=== PATIENT | female | born 1995 | race Caucasian/White ===

== ENCOUNTER 2020-08-09 17:45 | Inpatient (IN) | payer BC, MEDICAID, SELFPAY ==
[2020-08-09] VITALS (10 sets, daily range): BP systolic 120–144; BP diastolic 52–80; PULSE 79–102; BMI 56.8
--- NOTE | 2020-08-09 18:31 | LDADM ---
This patient, Sophia Calvert, was admitted to Labor/Delivery/Recovery 108 on 08/09/20 at 17:45. Plans for labor, pain management and were discussed with patient. Patient/family oriented to hospital policies and general routines including ID bracelet, bed and alarms, visiting hours, pain management, procedures, bathroom and other care routines, personal items, smoking policy, room service/diet and guest tray routines, security routines, and visiting hours. Patient/Family are encouraged to report perceived risks to care and to ask questions if they do not understand what they are told or what they should do. See OBIX for further documentation.
[2020-08-09 19:18] LABS: Basophils Percent Auto 0.2 % (0.2-1.2); Eosinophils Percent Auto 0.3 % (0-4.4); Hematocrit 35.6 % (37.0-47.0); Hemoglobin 11.3 g/dL (12.0-15.0); Immature Granulocyte Absolute 0.06 K/mm3 (0.00-0.031); Immature Granulocyte Percent A 0.5 % (0-0.5); Lymphocytes Absolute Auto 4.19 K/mm3 (0.9-3.2); Lymphocytes Percent Auto 34.8 % (18.3-44.2); Mean Corpuscular HGB Conc 31.7 g/dl (32-36); Mean Corpuscular Volume 81.8 fl (80-100); Mean Platelet Volume 10.8 fl (7.4-10.4); Monocytes Absolute Auto 0.5 K/mm3 (0.1-0.6); Monocytes Percent Auto 4.2 % (2.6-8.5); Neutrophils Absolute Auto 7.2 K/mm3 (1.3-6.7); Platelet Count Result 241 k/mm3 (150-375); Red Blood Count 4.35 M/mm3 (4.2-5.4); Red Cell Distribution Width 13.7 % (11.5-14.5)
[2020-08-09 19:30] LABS: Alanine Aminotransferase 14 U/L (4-35); Albumin Level 3.6 g/dL (3.5-5.1); Alkaline Phosphatase 196 U/L (38-126); Anion Gap 6 mmol/L (8-16); Aspartate Amino Transferase 30 U/L (14-36); Bilirubin,Total 0.4 mg/dL (0.2-1.3); Blood Urea Nitrogen 12 mg/dL (7-17); Carbon Dioxide 24 mmol/L (22-30); Chloride 106 mmol/L (98-107); Estimated CRCL calculation 131 ml/min; Estimated Glomerular Filt Rate > 60; Glucose 72 mg/dL (65-105); Potassium 4.5 mmol/L (3.4-5.0); Sodium 136 mmol/L (137-145); Uric Acid 7.7 mg/dL (2.5-7.5)
[2020-08-09] MEDS: DINOPROSTONE 10 MG VAG INSERT VAGINAL (19:43)
[2020-08-10] VITALS (201 sets, daily range): BP systolic 81–158; BP diastolic 40–120; PULSE 25–211; RESP 14; TEMP 36.3–37.4; O2SAT 82–100
[2020-08-10] MEDS: fentaNYL CITRATE INJ (*CRX) 100 MCG/2 ML VIAL 50 MCG IV PUSH ×2 (03:04→04:35)
[2020-08-10 07:50] LABS: Rapid Plasma Reagin Non-Reactive (NonReactive)
[2020-08-10] MEDS: LACTATED RINGERS 1,000 ML 125 ML IV CONT ×3 (08:39→17:20)
[2020-08-10] MEDS: OXYTOCIN 30 UNITS/NS 500 ML 30 UNITS/500 ML BAG IV CONT (08:39)
--- NOTE | 2020-08-10 09:11 | WPDANESEPP ---
Anes - Eval Pre Procedure Procedure: labor epidural Date/Time: 08/10/20 09:11 Surgeon: nitish Preop Diagnosis: pain during labor Pre Op Diagnosis: Induction of Labor Patient Data Age: 25 Gender: F Height: 5 ft 3 in Weight: 145.5 kg Last Vital Signs Temp 36.6 C 08/10/20 08:15 Pulse 83 08/10/20 09:01 BP 138/70 08/10/20 09:01 Allergies Allergy/AdvReac Type Severity Reaction Status Date / Time No Known Allergies Allergy Unverified 10/15/18 13:00 Home Medications Medication Instructions Recorded Confirmed Type PNV cmb#95-ferrous fumarate-FA 1 tablet PO DAILY 08/08/20 08/08/20 History [] valacyclovir [Valtrex] 500 mg PO DAILY 08/08/20 08/09/20 History Laboratory Tests 08/09/20 08/09/20 08/09/20 18:54 18:54 18:54 WBC 12.0 K/mm3 H K/mm3 (4.5-10.0) RBC 4.35 M/mm3 M/mm3 (4.2-5.4) Hgb 11.3 g/dL L g/dL (12.0-15.0) Hct 35.6 % L % (37.0-47.0) MCV 81.8 fl fl (80-100) MCH 26.0 pg pg (26-34) MCHC 31.7 g/dl L g/dl (32-36) RDW 13.7 % % (11.5-14.5) Plt Count 241 k/mm3 k/mm3 (150-375) MPV 10.8 fl H fl (7.4-10.4) Immature Gran % (Auto) 0.5 % % (0-0.5) Neut % (Auto) 60.0 % % (45.5-73.1) Lymph % (Auto) 34.8 % % (18.3-44.2) Bracken % (Auto) 4.2 % % (2.6-8.5) Eos % (Auto) 0.3 % % (0-4.4) Baso % (Auto) 0.2 % % (0.2-1.2) Lymph # (Auto) 4.19 K/mm3 H K/mm3 (0.9-3.2) Bracken # (Auto) 0.5 K/mm3 K/mm3 (0.1-0.6) Eos # (Auto) 0.0 K/mm3 K/mm3 (0-0.3) Baso # (Auto) 0.0 K/mm3 K/mm3 (0.0-0.1) Abs Immat Gran (auto) 0.06 K/mm3 H K/mm3 (0.00-0.031) Absolute Neuts (auto) 7.2 K/mm3 H K/mm3 (1.3-6.7) Absolute Nucleated RBC 0.0 K/mm3 K/mm3 (0.0-0.012) Nucleated RBC % 0.0 % % (0.0-0.2) Sodium Potassium Chloride Carbon Dioxide Anion Gap BUN Creatinine Estim Creat Clear Calc Estimated GFR Glucose Uric Acid Cancelled Calcium Total Bilirubin AST ALT Alkaline Phosphatase Total Protein Albumin RPR Non-reactive (NonReactive) Blood Type Antibody Screen 08/09/20 08/09/20 18:54 18:54 WBC RBC Hgb Hct MCV MCH MCHC RDW Plt Count MPV Immature Gran % (Auto) Neut % (Auto) Lymph % (Auto) Bracken % (Auto) Eos % (Auto) Baso % (Auto) Lymph # (Auto) Bracken # (Auto) Eos # (Auto) Baso # (Auto) Abs Immat Gran (auto) Absolute Neuts (auto) Absolute Nucleated RBC Nucleated RBC % Sodium 136 mmol/L L mmol/L (137-145) Potassium 4.5 mmol/L mmol/L (3.4-5.0) Chloride 106 mmol/L mmol/L (98-107) Carbon Dioxide 24 mmol/L mmol/L (22-30) Anion Gap 6 mmol/L L mmol/L (8-16) BUN 12 mg/dL mg/dL (7-17) Creatinine 0.80 mg/dL mg/dL (0.7-1.0) Estim Creat Clear Calc 131 ml/min ml/min Estimated GFR > 60 (59 - ) Glucose 72 mg/dL mg/dL (65-105) Uric Acid 7.7 mg/dL H mg/dL (2.5-7.5) Calcium 9.0 mg/dL mg/dL (8.4-10.2) Total Bilirubin 0.4 mg/dL mg/dL (0.2-1.3) AST 30 U/L U/L (14-36) ALT 14 U/L U/L (4-35) Alkaline Phosphatase 196 U/L H U/L (38-126) Total Protein 7.0 g/dL g/dL (6.3-8.2) Albumin 3.6 g/dL g/dL (3.5-5.1) RPR Blood Type O Positive Antibody Screen Negative : gestational age (JORDAN 08/18/20) Patient hx anesthesia
--- NOTE | 2020-08-10 12:14 | WPDOBADMIT ---
Obstetrics - Admit Note Admission Note: AROM clear fluid /-2 vertex IUPC and FSE placed. record reviewed. No pertinent additions to the history and/or any subsequent changes in the physical findings that are not consistent with the expected course of the were found. Additions to the history and/or subsequent changes in the physical findings follow. None.
[2020-08-10] MEDS: OXYTOCIN 10 UNITS/ML VIAL IM (18:47)
[2020-08-10] MEDS: miSOPROStol 200 MCG TABLET 600 MCG RECTAL (18:51)
[2020-08-10] MEDS: miSOPROStol 200 MCG TABLET RECTAL (18:51)
--- NOTE | 2020-08-10 19:11 | PM.OBPRVD ---
OB - Delivery Note Procedure Delivery date: 08/10/20 events: Induced HTN Intrapartal events: None Induction method: AROM and per pitocin protocol Delivery monitor: external FHT, external uterine, internal FHT and internal uterine Route of delivery: Laceration Description: None Specimen: No Quantitative Blood Loss (ml): 400 Anesthesia type: Epidural Disposition: floor Baby Date of : 08/10/20 Time of : 18:40 Weeks of gestation at delivery: 38 Infant gender: Female Weight (pounds): 8 Weight (ounces): 0 presentation: vertex position: Left Occiput Anterior Placenta delivery description: Spontaneous cord vessel description: 3 Vessels and Clamped/Cut score one minute: 8 score five minutes: 9
[2020-08-10] MEDS: OXYTOCIN 30 UNITS/NS 500 ML 30 UNITS/500 ML BAG 125 UNITS IV CONT (19:15)
[2020-08-10] MEDS: WITCH HAZEL 40 PADS 1 PAD TOPICAL (21:11)
[2020-08-10] MEDS: BENZOCAINE 20% AER SPR (*SP) 56 GM CAN 1 SPRAY TOPICAL (21:11)
[2020-08-10] MEDS: IBUPROFEN 600 MG TABLET PO (22:41)
[2020-08-11] MEDS: IBUPROFEN 600 MG TABLET PO ×3 (04:16→17:26)
[2020-08-11 04:55] LABS: Hematocrit 29.1 % (37.0-47.0); Hemoglobin 9.6 g/dL (12.0-15.0)
--- NOTE | 2020-08-11 07:24 | WPDANLDPN2 ---
Anes-Prog Note L&D Date/Time: 08/11/20 07:24 Comfortable throughout: labor and delivery Neuraxial method: epidural Epidural/Spinal procedure site: clean & non-tender Neuro status: Neuro function grossly intact. Cardiovascular status: normal Respiratory status: normal Airway patency: baseline Mental status: baseline Post-Op hydration status: normal Vital Signs: Last Vital Signs Temp 37.3 C 08/10/20 21:30 Pulse 92 08/10/20 21:30 Resp 14 08/10/20 21:30 BP 155/81 H 08/10/20 21:30 Pulse Ox 99 08/10/20 21:30 Pain score (VAS): 3 I/O: Intake & Output 08/10/20 08/10/20 08/11/20 15:59 23:59 07:59 Intake Total 1000 1900 Output Total 683 Balance 1000 1217 Post-procedural complaints: none Patient feedback: Patient satisfied with anesthetic care.
[2020-08-11 07:35] VITALS: BP 126/76; PULSE 78; RESP 18; TEMP 36
[2020-08-11] MEDS: valACYclovir HCL 500 MG TABLET PO (10:23)
[2020-08-11] MEDS: POLYSACCHARIDE IRON COMPLEX 150 MG CAPSULE PO ×2 (10:24→17:26)
[2020-08-11] MEDS: MULTIVIT/MIN/PREN/FOL AC/IRON TABLET 1 TAB PO (10:24)
[2020-08-11] MEDS: DOCUSATE SODIUM 100 MG CAPSULE PO ×2 (10:24→17:26)
[2020-08-11 19:10] VITALS: BP 157/90; PULSE 88; RESP 15; TEMP 36.9; O2SAT 99
[2020-08-14 07:50] VITALS: BP 140/77; PULSE 89; RESP 20; TEMP 36.6; O2SAT 100
--- NOTE | 2020-08-22 11:44 | PM.OBDSVD ---
DS: Admitting Diagnosis Admitting Diagnosis Admitting Diagnosis: induction of labor DS: Discharge Diagnosis Discharge Diagnosis (1) (normal spontaneous vaginal delivery): Code(s): O80 - Encounter for full-term uncomplicated delivery Status: Acute OB - DS: Summary OB Procedures : Ultrasound OB Procedures Intrapartum: Spontaneous Vag Delivery OB Procedures: : None Time Spent with Patient Time attestation: Total time spent providing and/or coordinating discharge services: DS: Data Data Completed and Pending Completed studies during hospitalization: Pending at discharge 08/10/20 20:14 Surgical [PTH] Routine Discharge Plan Discharge Attending physician on discharge: Cornell Clark Discharging Clinician: Cornell Clark Patient Disposition: Home, Self-Care Activity: may shower Diet: as tolerated Discharge Instructions: Education: Mom and Baby Guide Given to: Mother Follow-Up: Call your delivering provider's office for an appointment to be seen. Mom and baby should come to the [facility] for the follow-up appointment. Appointment Date/Time: August 14, 2020 at 8:00 am What to expect at your follow-up visit: Physical Assessment Call [phone] if you are unable to keep your appointment time. BREAST CARE: * Wear a snug supportive bra. * For engorgement discomfort: Breast Feeding: * Apply warm moist washcloths * Express milk as needed to relieve engorgement * Wear loose clothing * For sore nipples: * Identify correct latch-on * Apply warm moist washcloths before and after nursing * Air dry nipples after nursing * May apply Lansinoh cream to nipples PERINEAL CARE: * Until bleeding stops, use your thelma bottle after urinating * Change your pad frequently throughout the day * You may take sitz baths several times a day (fill your bathtub with warm water and soak for 20 minutes.) Do NOT bathe in the water * No tub baths until seen by your physician - You may shower ACTIVITY: * Rest as much as possible. * Do not exercise or lift anything heavier than your baby (such as laundry or other children.) * Avoid stairs or driving as much as possible. * Do not put anything into the vagina. No douching, tampons, or sexual activity until seen by physician. NOTIFY PHYSICIAN IF YOU HAVE ANY QUESTIONS OR IF ANY OF THE FOLLOWING SYMPTOMS OCCUR: * If your perineum becomes red, swollen, or more painful than what you have experienced in the hospital. * If your vaginal bleeding becomes foul smelling. * If your vaginal bleeding becomes more heavy than a period or if your bleeding changes from pink to bright red. However, you may pass an occasional walnut-sized clot once or twice for the first week . * If you experience a sharp, shooting pain in you calves. * If you discover a hard, reddened area on your breast or if you experience flu-like symptoms. DIET: * Eat regular, well-balanced meals. * Drink plenty of fluids daily. If , drink to thirst. Patient Instructions: Antibiotic Form Stand Alone Forms: General Discharge Information Follow-up/Referrals: Cornell Clark MD [Physician] - Call for Appointment Discharge Medications: New polysaccharide iron complex 150 mg iron Capsule 150 mg PO BIDWM Qty: 60 RF: 0 Continued valacyclovir [Valtrex] 500 mg Tablet 500 mg PO DAILY RF: 0 PNV cmb#95-ferrous fumarate-FA [] 28 mg iron- 800 mcg Tablet 1 tablet PO DAILY RF: 0 Date of admission: 08/09/20 17:45 Primary Care Provider: PHYSICIAN,TIME RECORDER Admitting Provider: Cornell Clark Attending physician on admission: Cornell Clark Condition: Stable
== END 2020-08-11 21:15 | disposition home or self-care (01) | DRG 806 ==
LOC: ANHLDR 08-10 19:13 → ANHOB2 08-10 21:28
PROVIDERS: Admitting Provider Obstetrics & Gynecology; Visit Provider Obstetrics & Gynecology
DX: O13.4 Gestational [pregnancy-induced] hypertension without significant proteinuria, complicating childbirth (principal); O98.32 Other infections with a predominantly sexual mode of transmission complicating childbirth; Z37.0 Single live birth; Z3A.38 38 weeks gestation of pregnancy; O99.214 Obesity complicating childbirth; E66.01 Morbid (severe) obesity due to excess calories; B00.9 Herpesviral infection, unspecified
CPT/HCPCS: 36415; 80053; 84550; 85014; 85018; 85025; 86592; 86850; 86900; 86901; 88307; A9270; J2590; J2795; J3010; J7120

== ENCOUNTER 2022-01-13 12:56 | Emergency (ER) | payer BC, MEDICAID, SELFPAY ==
[2022-01-13] VITALS (9 sets, daily range): BP systolic 158–168; BP diastolic 80–89; PULSE 54–62; RESP 14–28; TEMP 36.3–36.9; O2SAT 94–100
--- NOTE | ~2022-01-13 | XR_ITS ---
EXAMINATION: XR chest 2V DATE: 01/13/2022 13:24 INDICATION: Epigastric abdominal pain. TECHNIQUE: Frontal and lateral views of the chest were obtained. COMPARISON: None. FINDINGS: The chest demonstrates clear lungs without pneumonia, pleural effusion, or pneumothorax. Th e heart size is normal. IMPRESSION: 1. No acute cardiopulmonary disease. Reviewed, dictated and finalized at location B.
--- NOTE | ~2022-01-13 | US_ITS ---
EXAMINATION: US abdomen limited DATE: 01/13/2022 15:22 INDICATION: Epigastric pain. TECHNIQUE: Multiple grayscale and Doppler ultrasound images of the abdomen were obtained. COMPARISON: None available FINDINGS: Visualized portions of pancreas are normal. Enlarged liver with increased echogenicity. No surface nodularity. Normal hepatopetal flow in the main portal vein. Portal vein measures 12 mm. Chol elithiasis. Gallbladder wall measures 3 mm. The normal common bile duct measures 4.5 mm. There was no sonographic Bowie sign. The visualized portions of the inferior vena cava are normal. IMPRESSION: 1. Cholelithiasis with mild gallbladder wall thickening. Negative sonographic Bowie sign. 2. Hepatomegaly. 3. Echogenic liver, commonly due to steatosis but also can be seen with hepatitis and fibrosis. Reviewed, dictated and finalized at location K. IMPRESSION: 1. Cholelithiasis with mild gallbladder wall thickening. Negative sonographic M urphy sign. 2. Hepatomegaly. 3. Echogenic liver, commonly due to steatosis but also can be seen with hepatit is and fibrosis.
--- NOTE | 2022-01-13 12:58 | ECG_ITS ---
Measurements Intervals [place] Rate: 67 P: 23 VA: 156 QRS: 14 QRSD: 85 T: 23 QT: 392 QTc: 416 Interpretive Statements SINUS RHYTHM WITH SINUS ARRHYTHMIA LOW QRS VOLTAGE IN PRECORDIAL LEADS [QRS DEFLECTION < 1.0 mV IN CHEST LEADS] OTHERWISE WITHIN NORMAL LIMITS NO PREVIOUS ECG AVAILABLE FOR COMPARISON Electronically Signed On 01-13-2022 16:32:24 CDT by Marc Peralta M.D.
[2022-01-13 13:11] LABS: Basophils Percent Auto 0.3 % (0.2-1.2); Eosinophils Percent Auto 0.2 % (0-4.4); Hematocrit 39.1 % (37.0-47.0); Hemoglobin 13.4 g/dL (12.0-15.0); Immature Granulocyte Absolute 0.05 K/mm3 (0.00-0.031); Immature Granulocyte Percent A 0.5 % (0-0.5); Lymphocytes Absolute Auto 2.19 K/mm3 (0.9-3.2); Lymphocytes Percent Auto 20.1 % (18.3-44.2); Mean Corpuscular HGB Conc 34.3 g/dl (32-36); Mean Corpuscular Hemoglobin 28.3 pg (26-34); Mean Corpuscular Volume 82.7 fl (80-100); Mean Platelet Volume 9.9 fl (7.4-10.4); Monocytes Absolute Auto 0.3 K/mm3 (0.1-0.6); Monocytes Percent Auto 2.8 % (2.6-8.5); Neutrophils Absolute Auto 8.3 K/mm3 (1.3-6.7); Neutrophils Percent Auto 76.1 % (45.5-73.1); Platelet Count Result 297 k/mm3 (150-375); Red Blood Count 4.73 M/mm3 (4.2-5.4); Red Cell Distribution Width 13.2 % (11.5-14.5); White Blood Count 10.9 K/mm3 (4.5-10.0)
[2022-01-13 13:21] LABS: Prothrombin Time 13.2 Seconds (11.1-14.7)
[2022-01-13 13:22] LABS: Partial Thromboplastin Time 33.2 SECONDS (22.3-36.8)
[2022-01-13 13:23] LABS: Alanine Aminotransferase 37 U/L (6-35); Alkaline Phosphatase 61 U/L (38-126); Anion Gap 11 mmol/L (8-16); Aspartate Amino Transferase 29 U/L (14-36); Bilirubin,Total 0.5 mg/dL (0.2-1.3); Blood Urea Nitrogen 14 mg/dL (7-17); Calcium 10.4 mg/dL (8.4-10.2); Carbon Dioxide 26 mmol/L (22-30); Chloride 101 mmol/L (98-107); Estimated CRCL calculation 112 ml/min; Estimated Glomerular Filt Rate > 60; Glucose 143 mg/dL (65-110); Lipase 79 U/L (23-300); Sodium 138 mmol/L (137-145)
[2022-01-13 13:34] LABS: Troponin I < 0.012 ng/mL (0.000-0.034)
[2022-01-13] MEDS: BELLADONNA ALK/PHENOB ELIX 10 ML, MAG HYDROX/ALUMINUM HYD/SIMETH 30 ML, LIDOCAINE HCL 2... PO (14:51)
[2022-01-13] MEDS: ONDANSETRON HCL ODT 4 MG TABLET PO (14:53)
--- NOTE | 2022-01-13 15:40 | ED.GENADULT ---
HPI - General Adult General Chief complaint: Chest Pain Stated complaint: chest pains Time Seen by Provider: 01/13/22 14:29 Source: patient Mode of arrival: ambulatory Limitations: no limitations History of Present Illness HPI narrative: This is a 26 year old female who presents for evaluation of epigastric abdominal pain. This pain started last night at 10 pm. She states this pain radiates into her chest. She is unable to described. She states this morning she had nausea and nonbilious emesis. Pain has been constant. She states she vomited the tacos that she ate last night at 6 pm. She denies history of fever, chills, sob or cough. She denies history of gallbladder disease. She rates her pain as 7/10. Onset (ago): hour(s) Related Data Home Medications Medication Instructions Recorded Confirmed vit no.95-ferrous 1 tablet PO DAILY 08/08/20 08/08/20 fumarate 28 mg-folic acid 800 mcg tablet () valacyclovir 500 mg tablet 500 mg PO DAILY 08/08/20 08/09/20 (Valtrex) Allergies Allergy/AdvReac Type Severity Reaction Status Date / Time No Known Allergies Allergy Unverified 10/15/18 13:00 Review of Systems Review of Systems: All systems reviewed & are unremarkable except as noted in HPI and below Constitutional: Constitutional: Denies chills, Denies fatigue and Denies fever(s) Cardiovascular: Cardiovascular: Reports chest pain and Denies rapid heart rate Respiratory: Respiratory: Denies chest congestion and Denies cough Gastrointestinal: Gastrointestinal: Reports abdominal pain, Reports diarrhea, Reports nausea and Reports vomiting Genitourinary: Genitourinary: Denies dysuria Musculoskeletal: Musculoskeletal: Denies back pain and Denies myalgias PMFSH Past Medical History Medical History Morbid obesity with BMI of 50.0-59.9, adult (normal spontaneous vaginal delivery) Family History Family History Other No pertinent family history Social History Social History Smoking status: Never smoker Substance use: never Spiritual care concerns: No Exam Const: General: alert Nutritional Appearance: well nourished and obese Orientation/consciousness: patient oriented x3 Limitations: no limitations HENMT: Head: normal to inspection Mouth: Yes Normal oral and palatal mucosa present, Yes lip normal and Yes moist mucous membranes Throat: posterior oropharynx normal Eyes: Pupils: Equal, round and reactive pupils present EOM: EOMs intact bilaterally Resp: Effort & Inspection: normal respiratory effort Auscultation: clear to auscultation bilaterally and breath sounds present Cardio: Rate: regular rate Rhythm: regular rhythm Heart sounds: no murmurs GI: GI Palp: Yes Soft to palpation and Yes Tenderness to palpation present (GI) (epigastric, RUQ, LUQ) Back/Spine/Pelvis: Back: no CVA tenderness Skin: General skin exam: normal color Rashes: no rashes Neuro: General: patient oriented x3, moves all extremities and CN's II-XI intact bilaterally Extrem: General: normal to inspection Psych: Mental Status: mental status grossly normal Affect: normal affect Attitude: cooperative Course Reevaluation(s) Reevaluation #1: PAtient states she feels much better. She has gallstones but negative crystal's . I Discussed will treat with low fat diet and referral to general surgery. She is agreeable to discharge plan. Date: 01/13/22 Time: 17:37 Vital Signs Vital signs: Vital Signs Temperature 98.5 F 01/13/22 12:57 Pulse Rate 60 01/13/22 12:57 Respiratory Rate 14 01/13/22 12:57 Blood Pressure 159/84 H 01/13/22 12:57 Pulse Oximetry 100 01/13/22 12:57 Oxygen Delivery Room Air 01/13/22 12:57 Temperature 97.3 F L 01/13/22 16:30 Pulse Rate 55 L 01/13/22 16:30 Respiratory
[2022-01-13 16:29] LABS: Troponin I < 0.012 ng/mL (0.000-0.034)
[2022-01-13] MEDS: PANTOPRAZOLE SODIUM IV 40 MG VIAL IV PUSH (17:02)
[2022-01-13] MEDS: SODIUM CHLORIDE 0.9% IV 1,000 ML 999 ML IV CONT (17:03)
[2022-01-13] MEDS: KETOROLAC 30 MG/ML VIAL (*BKC) IV PUSH (17:03)
== END 2022-01-13 17:49 | disposition home or self-care (01) ==
PROVIDERS: Emergency Provider General Practice
DX: K80.20 Calculus of gallbladder without cholecystitis without obstruction (principal)
CPT/HCPCS: 36415; 71046; 76705; 80053; 83690; 84484; 85025; 85610; 85730; 93005; 96361; 96374; 96375; 99284; A9270; C9113; J1885; J7030

== ENCOUNTER 2024-01-14 11:16 | Outpatient (CLI) | payer BC, SELFPAY ==
--- NOTE | ~2024-01-14 | US_ITS ---
Pelvic ultrasound. Clinical History: First trimester , vaginal spotting Technique: Realtime transabdominal and transvaginal scanning of the pelvis was performed. Color flow Doppler and Doppler spectral analysis were performed. Findings: The uterus is anteverted, and contains an intrauterine gestation. [place]-rump length is 7.3 cm corresponds to an estimated gestational age of 13 weeks 3 days. heart rate is [address] nta anteriorly located. Neither ovary seen. No adnexal mass seen. There is no evidence of free fluid in the cul de sac. Impression: Live intrauterine gestation, with estimated gestational age of 13 weeks 3 days. heart rate is 1 47 bpm. Reviewed, dictated and finalized at location . Impression: Live intrauterine gestation, with estimated gestational age of 13 weeks 3 days. heart rate is 147 bpm.
== END 2024-01-14 11:17 ==
LOC: MICIMG 11:17
PROVIDERS: PCP Advanced Practice Midwife; Visit Provider Advanced Practice Midwife
DX: O26.851 Spotting complicating pregnancy, first trimester (principal); O26.30 Retained intrauterine contraceptive device in pregnancy, unspecified trimester; Z3A.13 13 weeks gestation of pregnancy
CPT/HCPCS: 76801

== ENCOUNTER 2024-03-01 13:23 | Outpatient (CLI) | payer BC, MEDICAID, SELFPAY ==
--- NOTE | ~2024-03-01 | US_ITS ---
EXAMINATION: US OB /maternal detail DATE: 03/01/2024 13:58 INDICATION: anatomic survey. TECHNIQUE: Real-time ultrasound of the pelvis was performed. COMPARISON: Ultrasound 01/14/2024 FINDINGS: There is a single living fetus in breech presentation. The placenta is anterior, 3.4 cm from the cer vix. The cervical length is 2.5 cm on transabdominal images, which is normal. heart rate is 147 beats per minute (bpm). The amniotic fluid volume is subjectively normal. The following biometric data were obtained: Biparietal diameter (BPD): 4.8 cm; head circumference (HC): 18.0 cm; abdominal circumference (AC): 16 .0 cm; femur length (FL): 3.2 cm. These measurements are concordant. Estimated weight is 360 g +/- 54 g, which correlates with the 68th percentile when 07/18/24 is used as estimated date of delivery. As single measurements, these parameters are each equal to the following estimated gestational ages: BPD: 20 weeks 4 days. HC: 20 weeks 3 days. AC: 21 weeks 1 days. FL: 19 weeks 6 days. estimated gestational age based solely on measurements from this exam is 20 weeks 4 days +/- 1 weeks 3 days. The cerebral ventricles, cerebellum, cisterna magna, nuchal fold, lip, and visualized portions of the spine are normal. The heart is normal. The diaphragm, stomach, kidneys, and bladder are normal. Ther e are two umbilical arteries to yield a 3-vessel cord. The cord insertion is normal. IMPRESSION: 1. Single living fetus in breech presentation. 2. Estimated weight is 360 g +/- 54 g, which correlates with the 68th percentile when 07/18/24 is used as estimated date of delivery. This date was set by ultrasound on 01/14/2024. 3. Normal anatomic survey. Reviewed, dictated and finalized at location A. IMPRESSION: 1. Single living fetus in breech presentation. 2. Estimated weight is 360 g +/- 54 g, which correlates with the 68th pe rcentile when 07/18/24 is used as estimated date of delivery. This date was set by ultrasound on 01/14/2024. 3. Normal anatomic survey.
== END 2024-03-01 13:24 ==
LOC: MICIMG 13:26
PROVIDERS: PCP Advanced Practice Midwife; Visit Provider Advanced Practice Midwife
DX: Z36.9 Encounter for antenatal screening, unspecified (principal); Z3A.20 20 weeks gestation of pregnancy
CPT/HCPCS: 76805

== ENCOUNTER 2024-05-24 15:19 | Outpatient (CLI) | payer BC, SELFPAY ==
--- NOTE | ~2024-05-24 | US_ITS ---
EXAMINATION: US OB follow up DATE: 05/24/2024 15:40 INDICATION: Preeclampsia. Assess growth. TECHNIQUE: Real-time ultrasound of the pelvis was performed. The interpreting radiologist was not pre sent for the study. COMPARISON: None. FINDINGS: There is a single living fetus in vertex presentation. The placenta is anterior and not low-lying. F etal heart rate is 140 beats per minute (bpm). The amniotic fluid index is 14 point cm, which is nor mal (5th%-95%: 8.6-24.2 cm at 32 weeks estimated gestational age) . The following biometric data were obtained: BPD: 8.4 cm -> 33 weeks 6 days Head circumference: 31.2 cm -> 34 weeks 6 days Abdominal circumference: 29.9 cm -> 33 weeks 6 days Femur length: 6.3 cm -> 32 weeks 4 days These measurements are concordant. Head circumference to abdominal circumference ratio: 1.04 (normal range 0.95-1.11). Estimated weight: 2232 g (+/-) 335 g or 4 lbs. 15 oz. (+/-) 12 oz. IMPRESSION: 1. Single living fetus in vertex presentation with heart rate of 140 bpm. 2. Normal amniotic fluid index of 14.8 cm. 3. Estimated weight is 84th percentile by Hadlock criteria when 07/18/2024 is used as the estim ated date of delivery (JORDAN). Please correlate with clinical information or earlier ultrasounds for mo st accurate JORDAN. Reviewed, dictated and finalized at location A. IMPRESSION: 1. Single living fetus in vertex presentation with heart rate of 140 bpm. 2. Normal amniotic fluid index of 14.8 cm. 3. Estimated weight is 84th percentile by Hadlock criteria when 4 is used as the estimated date of delivery (JORDAN). Please correlate with clinic al information or earlier ultrasounds for most accurate JORDAN.
== END 2024-05-24 15:20 | disposition home or self-care (01) ==
LOC: MICIMG 15:21
PROVIDERS: PCP Advanced Practice Midwife; Visit Provider Advanced Practice Midwife
DX: O14.03 Mild to moderate pre-eclampsia, third trimester (principal); Z3A.00 Weeks of gestation of pregnancy not specified
CPT/HCPCS: 76816

== ENCOUNTER 2024-06-24 09:54 | Outpatient (RCR) | payer BC, SELFPAY ==
[2024-05-30 11:30] VITALS: BP 124/64; PULSE 78
[2024-06-07 13:30] VITALS: BP 114/62; PULSE 115
[2024-06-10 12:16] VITALS: BP 118/60; PULSE 75
[2024-06-17 11:20] VITALS: BP 137/65; PULSE 99
[2024-06-20 13:32] VITALS: BP 122/63; PULSE 102
--- NOTE | ~2024-06-24 | US_ITS ---
LIMITED OBSTETRIC ULTRASOUND/BIOPHYSICAL PROFILE Ordering provider: Lor Schroeder MD History: . nonreactive NST/Preeclampsia . Comparison: None. FINDINGS: MATERNAL CERVIX: Not visualized. PRESENTATION: Vertex. Longitudinal lie. PLACENTAL LOCATION: Anterior No previa. HEART RATE: 146 bpm (normal is between 110 to 160 bpm). AMNIOTIC FLUID INDEX: Largest vertical pocket is 6.1 cm. OTHER: Maternal ovaries not visualized. SCORE: breathing movements: 2 movements: 2 tone: 2 Amniotic fluid volume: 2 Total: 8 IMPRESSION: Normal biophysical profile. Reviewed, dictated and finalized at location A. M BONE PRESS TENDER IMPRESSION: Normal biophysical profile.
--- NOTE | ~2024-06-24 | US_ITS ---
LIMITED OBSTETRIC ULTRASOUND/BIOPHYSICAL PROFILE Ordering provider: Loretta Gonzalez CNM History: . non reactive NST . Comparison: None. FINDINGS: MATERNAL CERVIX: Not visualized. PRESENTATION: Vertex. Longitudinal lie. PLACENTAL LOCATION: Anterior. No previa. HEART RATE: 148 bpm (normal is between 110 to 160 bpm). AMNIOTIC FLUID INDEX: Normal. Largest vertical pocket is 7.3 cm. OTHER: Maternal ovaries not visualized. SCORE: breathing movements: 2 movements: 2 tone: 2 Amniotic fluid volume: 2 Total: 8 IMPRESSION: Normal biophysical profile. Reviewed, dictated and finalized at location A. TRONIC SENSING EQUIPMENT ASSEMBLER IMPRESSION: Normal biophysical profile.
--- NOTE | ~2024-06-24 | US_ITS ---
EXAMINATION: US OB BPP wo non-stress DATE: 06/24/2024 11:48 INDICATION: Inadequate accelerations for nonstress test TECHNIQUE: Real-time pelvic ultrasound was performed. The interpreting radiologist was not present fo r the study. COMPARISON: None. FINDINGS: There is a single living fetus in vertex presentation. The placenta is anterior and not low-lying wi th caudal margin 6.9 cm from the internal cervical os. Cervical length measures approximately 4.4 cm which is normal. heart rate is 152 beats per minute (bpm). Amniotic fluid volume is subjectivel y normal. Biophysical profile performed by the technologist: breathing (30 sec sustained breathing in 30 minutes): 2 out of 2 movement (3 gross body movements in 30 minutes): 2 out of 2 tone (one episode of nhovims-imqfaswah-kzpjaej limb movement): 2 out of 2 Amniotic fluid pocket (2 cm): 2 out of 2 Total score: 8 out of 8 IMPRESSION: 1. Single living fetus in vertex presentation with heart rate of 152 bpm. 2. Biophysical profile 8 out of 8. Reviewed, dictated and finalized at location B. MENT ERECTOR
--- NOTE | ~2024-06-24 | US_ITS ---
EXAMINATION: US OB BPP wo non-stress DATE: 06/10/2024 13:46 GUIDEMAN INDICATION: Nonreactive NST TECHNIQUE: Real-time transabdominal obstetric ultrasound. FINDINGS: Ultrasound dated 06/07/2024 There is a single living fetus in vertex presentation. The placenta is anterior without placenta pre via. cardiac activity and movement is noted with a heart rate of 155 beats per minute. Biophysical profile: breathin of 2 movement: 2 of 2 tone: 2 of 2 Amniotic flud pocket: 2 of 2 Total score: 8 of 8 IMPRESSION: 1. Single living intrauterine in vertex presentation. 2: Total biophysical profile score of 03/10. Reviewed, dictated and finalized at location B. EMAN IMPRESSION: 1. Single living intrauterine in vertex presentation. 2: Total biophysical profile score of 8.
--- NOTE | ~2024-06-24 | US_ITS ---
EXAMINATION: US OB BPP wo non-stress DATE: 06/17/2024 11:06 INDICATION: Nonreactive nonstress test. Third trimester. TECHNIQUE: Real-time pelvic ultrasound was performed. COMPARISON: Ultrasound 06/14/2024 FINDINGS: There is a single living fetus in vertex presentation. The cervical length is 7.1 cm on transabdomina l images, which is likely overestimated, but is normal. The placenta is anterior, 5.5 cm from the cer vix. heart rate is 159 beats per minute (bpm). The deepest vertical pocket is 4.0 cm. Biophysical profile performed by the technologist: breathing (30 sec sustained breathing in 30 minutes): 2 out of 2 movement (3 gross body movements in 30 minutes): 2 out of 2 tone (one episode of tbkcilz-rzihfqpjm-jiarrxi limb movement): 2 out of 2 Amniotic fluid pocket (2 cm): 2 out of 2 Total score: 8 out of 8 IMPRESSION: 1. Single living fetus in vertex presentation. 2. Biophysical profile 8 out of 8. Reviewed, dictated and finalized at location A. ESS ENGINEERING INTERN
--- NOTE | ~2024-06-24 | US_ITS ---
EXAMINATION: US OB limited w BPP DATE: 05/30/2024 12:04 INDICATION: Gestational hypertension. Preeclampsia. Third trimester. TECHNIQUE: Real-time pelvic ultrasound was performed. COMPARISON: Ultrasound 05/24/2024 FINDINGS: There is a single living fetus in vertex presentation. The placenta is anterior. The cervical length is 4.4 cm on transabdominal images, which is normal. heart rate is 135 beats per minute (bpm). The amount of fluid index is 11.8 cm, which is normal. Biophysical profile performed by the technologist: breathing (30 sec sustained breathing in 30 minutes): 2 out of 2 movement (3 gross body movements in 30 minutes): 2 out of 2 tone (one episode of dpxwfto-tjzlijxgh-hveaslv limb movement): 2 out of 2 Amniotic fluid pocket (2 cm): 2 out of 2 Total score: 8 out of 8 IMPRESSION: 1. Single living fetus in vertex presentation. 2. Biophysical profile 8 out of 8. Reviewed, dictated and finalized at location B.
[2024-06-24 11:20] VITALS: BP 129/68; PULSE 91
== END 2024-06-29 17:52 | disposition home or self-care (01) ==
LOC: ANHOBOP 09:54
PROVIDERS: PCP Advanced Practice Midwife; Visit Provider Advanced Practice Midwife
DX: O13.9 Gestational [pregnancy-induced] hypertension without significant proteinuria, unspecified trimester (principal)
CPT/HCPCS: 59025; 76815; 76819

== ENCOUNTER 2024-06-27 06:00 | Inpatient (IN) | payer BC, MEDICAID, SELFPAY ==
[2024-06-27] VITALS (265 sets, daily range): BP systolic 55–130; BP diastolic 18–93; PULSE 67–113; TEMP 36.1–36.6; O2SAT 94–100; BMI 48.8
--- NOTE | 2024-06-27 06:25 | LDADM ---
This patient, Sophia Calvert, was admitted to Labor/Delivery/Recovery 107 on 06/27/24 at 06:00. Plans for labor, pain management and were discussed with patient. Patient/family oriented to hospital policies and general routines including ID bracelet, bed and alarms, visiting hours, pain management, procedures, bathroom and other care routines, personal items, smoking policy, room service/diet and guest tray routines, security routines, and visiting hours. Patient/Family are encouraged to report perceived risks to care and to ask questions if they do not understand what they are told or what they should do. See OBIX for further documentation.
[2024-06-27 06:40] LABS: Basophils Absolute Auto 0.1 K/mm3 (0.0-0.1); Basophils Percent Auto 0.5 % (0.2-1.2); Eosinophils Absolute Auto 0.1 K/mm3 (0-0.3); Eosinophils Percent Auto 1.1 % (0-4.4); Hematocrit 32.7 % (37.0-47.0); Hemoglobin 11.5 g/dL (12.0-15.0); Immature Granulocyte Absolute 0.06 K/mm3 (0.00-0.031); Immature Granulocyte Percent A 0.6 % (0-0.5); Lymphocytes Absolute Auto 2.41 K/mm3 (0.9-3.2); Lymphocytes Percent Auto 22.9 % (18.3-44.2); Mean Corpuscular HGB Conc 35.2 g/dl (32-36); Mean Corpuscular Hemoglobin 30.7 pg (26-34); Mean Corpuscular Volume 87.2 fl (80-100); Monocytes Absolute Auto 0.7 K/mm3 (0.1-0.6); Monocytes Percent Auto 6.7 % (2.6-8.5); Neutrophils Absolute Auto 7.2 K/mm3 (1.3-6.7); Neutrophils Percent Auto 68.2 % (45.5-73.1); Platelet Count Result 236 k/mm3 (150-375); Red Blood Count 3.75 M/mm3 (4.2-5.4); White Blood Count 10.5 K/mm3 (4.5-10.0)
[2024-06-27 06:54] LABS: Alanine Aminotransferase 21 U/L (6-35); Albumin Level 3.7 g/dL (3.5-5.1); Alkaline Phosphatase 131 U/L (38-126); Anion Gap 6 mmol/L (4-12); Aspartate Amino Transferase 29 U/L (14-36); Bilirubin,Total 0.5 mg/dL (0.2-1.3); Blood Urea Nitrogen 14 mg/dL (7-17); Carbon Dioxide 24 mmol/L (22-30); Chloride 104 mmol/L (98-107); Estimated Glomerular Filt Rate > 60; Glucose 86 mg/dL (65-110); Potassium 3.6 mmol/L (3.4-5.0); Sodium 134 mmol/L (137-145)
[2024-06-27] MEDS: LACTATED RINGERS 1,000 ML 125 ML IV CONT ×3 (07:06→18:47)
[2024-06-27] MEDS: OXYTOCIN 30 UNITS/NS 500 ML 30 UNITS/500 ML BAG IV CONT (07:06)
[2024-06-27] MEDS: AMPICILLIN 2 GM/NS 100 ML 2 GM/100 ML BAG IVPB (07:06)
[2024-06-27 07:35] LABS: HIV 1/2 Ab P24 Ag Result Negative (Negative)
[2024-06-27 07:39] LABS: Uric Acid 6.9 mg/dL (2.5-7.5)
[2024-06-27 07:51] LABS: Rapid Plasma Reagin Non-Reactive (NonReactive)
--- NOTE | 2024-06-27 07:56 | WPDOBADMIT ---
Obstetrics - Admit Note Admission Note: record reviewed. No pertinent additions to the history and/or any subsequent changes in the physical findings that are not consistent with the expected course of the were found. Additions to the history and/or subsequent changes in the physical findings follow. None.
--- NOTE | 2024-06-27 07:56 | PM.OBPNLAB ---
Pain Control Date/time seen: 06/27/24 07:48 Comments: IOL for preeclampsia. Denies feeling ctx. Denies POWELL, visual changes, RUQ pain, or edema. Pelvic Exam Dilation (cm): 1 (1.5) Effacement (%): 50 station: -3 Amniotic membrane status: Intact Comments: head well applied to cervix. Contractions Monitor mode: External Contraction pattern: Absent Status Comments: FHTs baseline 140. Moderate variability. +accelerations. Assessment and Plan Assessment: induction ongoing Comments: CNM to bedside. Discussed plan of care and option for amniotomy and IUPC placement. Discussed risks, benefits, and expectations of breaking water. Patient is agreeable. Amniotomy performed and there was a moderate return of clear amniotic fluid.IUPC placed easily through internal OS. Catheter filled with clear amniotic fluid. Patient tolerated procedure well. Plan to titrate pitocin as needed to achieve adequate contraction pattern. No severe features. Labs stable. Anticipate vaginal . Dr. Schroeder updated.
--- NOTE | 2024-06-27 09:51 | P.PNAN_ITS ---
Anes - Eval Pre Procedure Procedure: Labor epidural Date/Time: 06/27/24 09:51 Surgeon: Alexandre Preop Diagnosis: Pain during labor Pre Op Diagnosis: IOL Patient Data Age: 29 Gender: F Height: 1.6 m Weight: 125 kg Last Vital Signs Temp 36.1 C L 06/27/24 07:00 Pulse 92 06/27/24 09:47 BP 107/37 L 06/27/24 09:47 Pulse Ox 99 06/27/24 09:48 O2 Del Method Room Air 06/27/24 06:23 Allergies Allergy/AdvReac Type Severity Reaction Status Date / Time No Known Allergies Allergy Verified 06/20/24 12:23 Home Medications Medication Instructions Recorded Confirmed Type vit no.95-ferrous 1 tablet PO DAILY 08/08/20 06/20/24 History fumarate 28 mg-folic acid 800 mcg tablet () valacyclovir 500 mg tablet 500 mg PO BID 08/08/20 06/20/24 History (Valtrex) polysaccharide iron complex 150 mg 150 mg PO BIDWM #60 caps 08/11/20 06/20/24 Rx iron capsule aspirin 81 mg tablet 81 mg PO DAILY 06/20/24 06/20/24 History cholecalciferol (vitamin D3) 125 125 mcg PO DAILY 06/20/24 06/20/24 History mcg (5,000 unit) tablet (Vitamin D3) Laboratory Tests 06/27/24 06:24 WBC 10.5 H K/mm3 (4.5-10.0) RBC 3.75 L M/mm3 (4.2-5.4) Hgb 11.5 L g/dL (12.0-15.0) Hct 32.7 L % (37.0-47.0) MCV 87.2 fl (80-100) MCH 30.7 pg (26-34) MCHC 35.2 g/dl (32-36) RDW 13.0 % (11.5-14.5) Plt Count 236 k/mm3 (150-375) MPV 10.0 fl (7.4-10.4) Immature Gran % (Auto) 0.6 H % (0-0.5) Neut % (Auto) 68.2 % (45.5-73.1) Lymph % (Auto) 22.9 % (18.3-44.2) [place] % (Auto) 6.7 % (2.6-8.5) Eos % (Auto) 1.1 % (0-4.4) Baso % (Auto) 0.5 % (0.2-1.2) Lymph # (Auto) 2.41 K/mm3 (0.9-3.2) [place] # (Auto) 0.7 H K/mm3 (0.1-0.6) Eos # (Auto) 0.1 K/mm3 (0-0.3) Baso # (Auto) 0.1 K/mm3 (0.0-0.1) Abs Immat Gran (auto) 0.06 H K/mm3 (0.00-0.031) Absolute Neuts (auto) 7.2 H K/mm3 (1.3-6.7) Absolute Nucleated RBC 0.000 K/mm3 (0.0-0.012) Nucleated RBC % 0.0 % (0.0-0.2) Sodium 134 L mmol/L (137-145) Potassium 3.6 mmol/L (3.4-5.0) Chloride 104 mmol/L (98-107) Carbon Dioxide 24 mmol/L (22-30) Anion Gap 6 mmol/L (4-12) BUN 14 mg/dL (7-17) Creatinine 0.90 mg/dL (0.7-1.0) Estim Creat Clear Calc Not Reportable Estimated GFR > 60 (59 - ) Glucose 86 mg/dL (65-110) Uric Acid 6.9 mg/dL (2.5-7.5) Calcium 9.0 mg/dL (8.4-10.2) Total Bilirubin 0.5 mg/dL (0.2-1.3) AST 29 U/L (14-36) ALT 21 U/L (6-35) Alkaline Phosphatase 131 H U/L (38-126) Total Protein 7.0 g/dL (6.3-8.2) Albumin 3.7 g/dL (3.5-5.1) RPR Non-reactive (NonReactive) HIV 1&2 Ab/P24 Ag 4thGn Negative (Negative) Blood Type O Positive Antibody Screen Negative Patient hx anesthesia problems: none Family hx anesthesia problems: none Results Review: All pre-operative results and documents have been reviewed as part of the pre- operative evaluation. [facility] Past Medical History Medical History Morbid obesity with BMI of 50.0-59.9, adult (normal spontaneous vaginal delivery) Family History Family History Mother Carcinoma Other No pertinent family history Social History Social History Smoking status: Never smoker Substance use: never Do You Feel Safe in your Home?: Yes Lack of Transportation: No Lack of Food: Never True Current Housing: I Have Housing Concerned About Future Housing: No Difficulty Paying Gas/Electric Bills: No Difficulty Paying for Meds: No Currently Unemployed: No Education: High School Diploma/GED Difficulty w/ Childcare or Family Care: No Spiritual care concerns: No Exam Day of Procedure 06/27/24 09:51 Patient weight: morbidly obese Heart: regular rate and rhythm Lungs: clear to auscultation Airway: Mallampati scale class II Neurological: alert and oriented
[2024-06-27] MEDS: AMPICILLIN 1 GM/NS 50 ML 1 GM/50 ML BAG IVPB ×4 (10:59→23:38)
[2024-06-27] MEDS: SODIUM CHLORIDE 0.9% IV 300 ML 600 ML I-UTERINE (14:49)
--- NOTE | 2024-06-27 18:01 | PM.OBPNLAB ---
Pain Control Date/time seen: 06/27/24 9069 Comments: Phone call from RN. Assessment and Plan Comments: RN calling. Pt FHTs with recurrent deep variable decelerations. Plan to stop pitocin. Start amnioinfusion. Restart Pitocin in one hour if decels resolve.
--- NOTE | 2024-06-27 18:04 | PM.OBPNLAB ---
Pain Control Date/time seen: 06/27/24 1784 Pain control: tolerating well and epidural Pelvic Exam Dilation (cm): 3 (3.5) Effacement (%): 50 station: -3 Amniotic membrane status: Ruptured Contractions Monitor mode: Internal Contraction pattern: Absent Status Comments: Baseline 145, moderate variability Assessment and Plan Assessment: induction ongoing Plan: continuous present management Comments: CNM at bedside. station unchanged. Assisted pt into Walcher's position x 4 minutes, then to side lying release on left and right side. Finally, assisted to right lateral side with peanut ball between ankles. Plan to increase pitocin as needed to achieve adequate contraction pattern.
[2024-06-27] MEDS: ACETAMINOPHEN 500 MG TABLET 1000 MG PO (21:05)
[2024-06-27] MEDS: ONDANSETRON INJ 4 MG/2 ML VIAL IV PUSH (23:18)
[2024-06-27] MEDS: PHENYLEPHRINE 1,000 MCG/10 ML SYRINGE 100 MCG IV PUSH ×2 (23:25→23:33)
--- NOTE | 2024-06-27 23:48 | PM.OBPNLAB ---
Pain Control Date/time seen: 06/27/24 2345 CNM at bedside. Pain control: tolerating well and epidural Contractions Monitor mode: Internal Contraction frequency: 5 (5-8) Contraction duration: 80 (70-80) Contraction pattern: Regular Status Comments: FHTs 135 with moderate variability. Recent resolution of variable decelerations. Assessment and Plan Assessment: induction ongoing Comments: Pitocin off at this time. Plan to restart pitocin after 30 minutes of no FHT decelerations. Plan to begin pushing when fully dilated and ctx pattern improves. Anticipate vaginal .
--- NOTE | 2024-06-27 23:55 | PM.OBPRVD ---
OB - Vaginal Delivery Note Procedure Delivery date: 06/28/24 Events: Positive Group B Strep (GBS) and Preeclampsia w/o severe features Induction method: Per Pitocin Protocol Delivery augmentation: Rupture of Membranes Delivery monitor: External FHT and Internal Uterine Route of delivery: Episiotomy description: None Laceration Description: None Specimen: Yes (placenta) Quantitative Blood Loss (ml): 250 Anesthesia type: Epidural Disposition: Floor Complications: Other complications (retained placental fragment) Narrative: Sophia arrived for IOL d/t preeclampsia. Pitocin was started and membranes were ruptured. Ampicillin given per protocol for +GBS. She received an epidural for analgesia. She progressed to complete dilation and pushed with contractions. Dr. Schroeder Was called due to recurrent variable decelerations. Sophia pushed very well with contractions. After further descent of the head, Dr. Petty was called to the room from the assisted with head rotation after which there was immediate change in station. With the next push, she brought the head to complete crown and delivered over an intact perineum. A tight nuchal cord was observed. There was easy delivery of both anterior posterior shoulders followed by the remainder of the infant. The infant was made placed on maternal abdomen and dried and stimulated by the nursery staff. After 1 minutes of life, the cord was doubly clamped and cut. Cord gases, cord blood, and cord segment were obtained. The placenta delivered spontaneously in [place] presentation. The vulva perineum and vaginal vault were inspected and found to be intact. There was excellent hemostasis at this point. All delivery counts were correct. While CNM remained in the delivery room, a gush of blood was noted as well as some uterine atony. A bimanual uterine exam was performed and a ping-pong ball sized piece of placental fragment was returned with approximately 100 mL of additional blood. After this time, there was excellent uterine tone and hemostasis. Baby Date of : 06/28/24 Time of : 02:21 Gestational Age by Date: 37 Infant gender: Male Weight (pounds): 8 Weight (ounces): 0 presentation: vertex position: Right Occiput Anterior Placenta delivery description: Spontaneous Cord Vessel Description: 3 Vessels, Nuchal Cord and Tight score one minute: 8 score five minutes: 9
--- NOTE | 2024-06-27 23:58 | PM.OBDSVD ---
DS: Admitting Diagnosis Discharge Date 06/30/24 Admitting Diagnosis 29 y.o. at 37 weeks undergoing IOL for preeclampsia. DS: Discharge Diagnosis Discharge Diagnosis (1) (normal spontaneous vaginal delivery): Code(s): O80 - Encounter for full-term uncomplicated delivery Status: Acute (2) Preeclampsia: Code(s): O14.90 - Unspecified pre-eclampsia, unspecified trimester Status: Acute OB - DS: Summary Hospital Course Hospital Course: Uncomplicated OB Procedures : NST and Ultrasound OB Procedures Intrapartum: Spontaneous Vag Delivery and GBS prophylaxis OB Procedures: : None Peripartum Data Delivery Method: Natural Vaginal Laceration Description: None Episiotomy description: None complications: none Status at Discharge Functional status at discharge: independent ambulation Overall status at discharge: patient is progressing back to baseline Time Spent with Patient Time attestation: Total time spent providing and/or coordinating discharge services: Exam Narrative: Alert and oriented. Mood is pleasant and cooperative. Perineum with minimal edema. Fundus firm and below umbilicus. Const: General: cooperative, healthy appearing, no acute distress and alert Orientation/consciousness: patient oriented x3 Limitations: no limitations Resp: Effort & Inspection: normal respiratory effort and able to speak in complete sentences Cardio: Rate: regular rate GI: Inspection: normal to inspection GI Palp: Yes Soft to palpation : General: Yes bladder normal to palpation External Female Exam: other (lochia WNL) Bimanual exam- vagina & uterus: bladder normal to palpation Other: Fundus firm and below U Skin: General skin exam: normal color and no rashes or lesions noted Neuro: General: patient oriented x3 and moves all extremities Cognition (Neuro): normal cognition Speech: normal speech Sensory Exam: normal sensation Extrem: General: normal to inspection and no calf tenderness Psych: Appearance: grossly normal Mental Status: mental status grossly normal Affect: normal affect Thought process: Normal thought process present DS: Data Data Completed and Pending Labs on day of discharge: Labs from last 24 hours 06/27/24 06:24 WBC 10.5 H RBC 3.75 L Hgb 11.5 L Hct 32.7 L MCV 87.2 MCH 30.7 MCHC 35.2 RDW 13.0 Plt Count 236 MPV 10.0 Immature Gran % (Auto) 0.6 H Neut % (Auto) 68.2 Lymph % (Auto) 22.9 [place] % (Auto) 6.7 Eos % (Auto) 1.1 Baso % (Auto) 0.5 Lymph # (Auto) 2.41 [place] # (Auto) 0.7 H Eos # (Auto) 0.1 Baso # (Auto) 0.1 Abs Immat Gran (auto) 0.06 H Absolute Neuts (auto) 7.2 H Absolute Nucleated RBC 0.000 Nucleated RBC % 0.0 Sodium 134 L Potassium 3.6 Chloride 104 Carbon Dioxide 24 Anion Gap 6 BUN 14 Creatinine 0.90 Estim Creat Clear Calc Not Reportable Estimated GFR > 60 Glucose 86 Uric Acid 6.9 Calcium 9.0 Total Bilirubin 0.5 AST 29 ALT 21 Alkaline Phosphatase 131 H Total Protein 7.0 Albumin 3.7 RPR Non-reactive HIV 1&2 Ab/P24 Ag 4thGn Negative Blood Type O Positive Antibody Screen Negative Discharge Plan Discharge Attending physician on discharge: Lor Schroeder Discharging Clinician: Loretta Gonzalez Patient Disposition: Home, Self-Care Activity: may shower and pelvic rest Diet: as tolerated and regular Discharge Instructions: Continue taking your vitamin and any other supplements as previously directed (Examples: Iron, Vitamin D). You may take Tylenol 1000mg over the counter every 6 hours as needed for pain. Do not exceed 4000mg of Tylenol daily. You may continue using tucks pads and dermoplast spray if needed for a few more days. Blood Pressure Instructions Check your BP at home daily. Keep a log and bring to your next visit. Report any BP readings over 160/110 to provider immediately. (Please call if either number is elevated) Headache that does not improve with 2 Extra Strength Tylenol (you may take Ibuprofen if not ) Visual changes such as blurred vision or flashes of light Pain under the right breast Significant increase in swelling with any of the above symptoms * Make sure you are sitting for at least 5 minutes before checking your blood pressure. Keep legs uncrossed and avoid talking while taking your blood pressure. Patient Instructions: Antibiotic Form Stand Alone Forms: General Discharge Information Follow-up/Referrals: Loretta Gonzalez, CNM [Primary Care Provider] - (6 weeks ) Discharge Medications: New ibuprofen 600 mg tablet 600 mg PO Q6H PRN (Reason: pain) Qty: 30 0RF Continued PNV cmb#95-ferrous fumarate-FA [] 28 mg iron- 800 mcg Tablet 1 tablet PO DAILY polysaccharide iron complex 150 mg iron Capsule 150 mg PO BIDWM Qty: 60 0RF cholecalciferol (vitamin D3) [Vitamin D3] 125 mcg (5,000 unit) Tablet 125 mcg PO DAILY Discontinued valacyclovir [Valtrex] 500 mg Tablet 500 mg PO BID aspirin 81 mg Tablet 81 mg PO DAILY Date of admission: 06/27/24 06:00 Primary Care Provider: Loretta Gonzalez Admitting Provider: Lor Schroeder Attending physician on admission: Lor Schroeder Condition: Stable
[2024-06-28] VITALS (35 sets, daily range): BP systolic 109–131; BP diastolic 46–73; PULSE 61–150; RESP 14–18; TEMP 36.3–38; O2SAT 90–100
[2024-06-28] MEDS: miSOPROStol 200 MCG TABLET 800 MCG (02:40)
[2024-06-28] MEDS: OXYTOCIN 30 UNITS/NS 500 ML 30 UNITS/500 ML BAG 125 UNITS IV CONT (02:52)
[2024-06-28] MEDS: ceFAZolin 3 GM/D5W 100 ML 100 ML IVPB (03:11)
[2024-06-28] MEDS: ACETAMINOPHEN 500 MG TABLET 1000 MG (04:16)
[2024-06-28] MEDS: IBUPROFEN 600 MG TABLET (04:18)
--- NOTE | 2024-06-28 05:06 | PC.NURSE ---
Patient transferred to post room #281 via (W/C ). Support person present. Oriented to unit, room, information board, rooming in, admission packet and security measures. Patient verbalizes understanding.
[2024-06-28] MEDS: MULTIVIT/MIN/PREN/FOL AC/IRON TABLET 1 TAB PO (08:06)
[2024-06-28] MEDS: CHOLECALCIFEROL 1,000 UNITS TABLET 1000 UNITS PO (08:06)
[2024-06-28] MEDS: ACETAMINOPHEN 325 MG TABLET 650 MG PO ×2 (10:06→19:26)
[2024-06-28] MEDS: IBUPROFEN 600 MG TABLET PO ×2 (10:07→19:26)
--- NOTE | 2024-06-28 10:45 | PC.NURSE ---
1005- Introductions were made, then consulted with patient to assess needs related to . Discussed with mother her?plans to feed?her and the?experience so far. She has been bottle feeding due to blood sugars and states that she did not have good milk supply with her other children. Encouraged frequent pumping if using bottles to help establish a milk supply. She does not have a pump yet and we discussed options for getting an insurance pump and she would like the [employer] pump. Resources provided for inpatient and outpatient services with the feeding sheet, mom/baby guide, Admission Folder and name/number written on the communication board. Mother voiced understanding of information and will call if there is a request for assistance. Reported to the Primary RN. 1045- Breast pump provided due to [use of bottles and history of low milk supply]. Instructions given on cleaning, care, usage, that there should be no pain, pumping schedule for milk production, collection, and storage of human milk. Patient was assessed for correct placement, flange size (24mm), to pump for stimulation for adequate milk production every 3 hours (8 times in 24 hours) 1-2 times at night. Mother voiced understanding of the education shared pump user manual for additional resource information. Reported to the Primary RN.
[2024-06-29] MEDS: ACETAMINOPHEN 325 MG TABLET 650 MG PO ×3 (05:25→20:00)
[2024-06-29] MEDS: IBUPROFEN 600 MG TABLET PO ×2 (05:25→20:00)
[2024-06-29 05:57] LABS: Hematocrit 31.8 % (37.0-47.0)
--- NOTE | 2024-06-29 07:55 | WPDANLDPN2 ---
Anes-Prog Note L&D Date/Time: 06/29/24 07:55 Comfortable throughout: labor and delivery Neuraxial method: epidural Epidural/Spinal procedure site: clean & non-tender Neuro status: Neuro function grossly intact. Cardiovascular status: normal Respiratory status: normal Airway patency: baseline Mental status: baseline Post-Op hydration status: normal Vital Signs: Last Vital Signs Temp 36.5 C 06/28/24 20:45 Pulse 75 06/28/24 20:45 Resp 14 06/28/24 20:45 BP 109/46 L 06/28/24 20:45 Pulse Ox 99 06/28/24 20:45 O2 Del Method Room Air 06/27/24 06:23 Pain score (VAS): 3/10 I/O: Intake & Output 06/28/24 06/28/24 06/29/24 15:59 23:59 07:59 Intake Total 960 800 Output Total 1600 640 900 Balance -640 -640 -100 Post-procedural complaints: none Patient feedback: Patient satisfied with anesthetic care.
--- NOTE | 2024-06-29 08:06 | PM.OBPNVD ---
OB - PN: Subj Subjective Date/time seen: 06/29/24 0745 Interval history: Post Day 1 from [facility]. Doing well. Urinating without difficulty. Denies passing any large clots. Denies dizziness with ambulating. Tolerating po food and fluids. Bonding with infant. Patient comments: pain well controlled [place] baby status: doing well and bottle feeding well feeding status: pumping and storing OB - PN: Obj Data Labs 06/29/24 05:18 06/27/24 06:24 Labs: Laboratory Results - last 24 hr 06/29/24 05:18 Hgb 11.0 L Hct 31.8 L OB - PN A/P Assessment and Plan (1) (normal spontaneous vaginal delivery): Code(s): O80 - Encounter for full-term uncomplicated delivery Status: Acute (2) Preeclampsia: Code(s): O14.90 - Unspecified pre-eclampsia, unspecified trimester Status: Acute Assessment and Plan: all BPs WNL Plan day: 1 Plan: routine care Time Spent With Patient Time: Total time spent is greater than 50% in coordination of care (as documented) at patient's floor/unit and/or counseling patient: Review of Systems Review of Systems: All systems reviewed & are unremarkable except as noted in HPI and below Exam Narrative: Alert and oriented. Mood is pleasant and cooperative. Perineum with minimal edema. Fundus firm and below umbilicus. Const: General: cooperative, healthy appearing, no acute distress and alert Orientation/consciousness: patient oriented x3 Limitations: no limitations Resp: Effort & Inspection: normal respiratory effort and able to speak in complete sentences Cardio: Rate: regular rate GI: Inspection: normal to inspection GI Palp: Yes Soft to palpation : General: Yes bladder normal to palpation External Female Exam: other (lochia WNL) Bimanual exam- vagina & uterus: bladder normal to palpation Other: Fundus firm and below U Skin: General skin exam: normal color and no rashes or lesions noted Neuro: General: patient oriented x3 and moves all extremities Cognition (Neuro): normal cognition Speech: normal speech Sensory Exam: normal sensation Extrem: General: normal to inspection and no calf tenderness Psych: Appearance: grossly normal Mental Status: mental status grossly normal Affect: normal affect Thought process: Normal thought process present
[2024-06-29 08:38] VITALS: BP 118/73; PULSE 67; RESP 18; TEMP 36.6; O2SAT 100
[2024-06-29] MEDS: DOCUSATE SODIUM 100 MG CAPSULE PO (09:29)
[2024-06-29] MEDS: POLYSACCHARIDE IRON COMPLEX 150 MG CAPSULE PO (09:29)
[2024-06-29] MEDS: CHOLECALCIFEROL 1,000 UNITS TABLET 1000 UNITS PO (09:29)
[2024-06-29] MEDS: MULTIVIT/MIN/PREN/FOL AC/IRON TABLET 1 TAB PO (09:29)
[2024-06-29 12:13] VITALS: BP 130/69
[2024-06-29 12:30] VITALS: BP 127/69; PULSE 74; RESP 16; TEMP 36.4; O2SAT 100
[2024-06-29 12:49] VITALS: BP 127/69; PULSE 74; RESP 16; TEMP 36.4; O2SAT 100
[2024-06-29 16:28] VITALS: BP 118/59
[2024-06-29 19:30] VITALS: BP 126/69; PULSE 75; RESP 18; TEMP 36.8; O2SAT 97
[2024-06-30 00:11] VITALS: BP 135/70; PULSE 84; RESP 16; TEMP 36.8; O2SAT 100
[2024-06-30] MEDS: IBUPROFEN 600 MG TABLET PO (02:26)
[2024-06-30] MEDS: ACETAMINOPHEN 325 MG TABLET 650 MG PO (02:27)
[2024-06-30 05:00] VITALS: BP 104/55; PULSE 87
[2024-06-30 07:20] VITALS: BP 117/63; PULSE 63; RESP 18; TEMP 36.6; O2SAT 99
--- NOTE | 2024-06-30 07:35 | P.PNOB_ITS ---
OB - PN: Subj Subjective Date/time seen: 06/30/24 0725 Interval history: Post Day 2 from . Doing well. Urinating without difficulty or passing large clots. Denies dizziness with ambulating. Still tolerating po food and fluids. Bonding with infant. Hand expressing Patient comments: no complaints and pain well controlled [place] baby status: doing well and bottle feeding well feeding status: exclusively bottle feeding (hand expressing and occasionally pumping) OB - PN: Obj Data Labs 06/29/24 05:18 06/27/24 06:24 OB - PN A/P Assessment and Plan (1) (normal spontaneous vaginal delivery): Code(s): O80 - Encounter for full-term uncomplicated delivery Status: Acute (2) Preeclampsia: Code(s): O14.90 - Unspecified pre-eclampsia, unspecified trimester Status: Acute Assessment and Plan: BPs WNL. Denies POWELL, vision changes, RUQ pain, or increase in edema. Plan day: 2 Plan: discharge home Time Spent With Patient Time: Total time spent is greater than 50% in coordination of care (as documented) at patient's floor/unit and/or counseling patient: Review of Systems Review of Systems: All systems reviewed & are unremarkable except as noted in HPI and below Exam Narrative: Alert and oriented. Mood is pleasant and cooperative. Perineum with minimal edema. Fundus firm and below umbilicus. Const: General: cooperative, healthy appearing, no acute distress and alert Orientation/consciousness: patient oriented x3 Limitations: no limitations Resp: Effort & Inspection: normal respiratory effort and able to speak in complete sentences Cardio: Rate: regular rate GI: Inspection: normal to inspection GI Palp: Yes Soft to palpation : General: Yes bladder normal to palpation External Female Exam: other (lochia WNL) Bimanual exam- vagina & uterus: bladder normal to palpation Other: Fundus firm and below U Skin: General skin exam: normal color and no rashes or lesions noted Neuro: General: patient oriented x3 and moves all extremities Cognition ( Neuro): normal cognition Speech: normal speech Sensory Exam: normal sensation Extrem: General: normal to inspection and no calf tenderness Psych: Appearance: grossly normal Mental Status: mental status grossly normal Affect: normal affect Thought process: Normal thought process present
[2024-06-30] MEDS: MULTIVIT/MIN/PREN/FOL AC/IRON TABLET 1 TAB PO (08:46)
[2024-06-30] MEDS: DOCUSATE SODIUM 100 MG CAPSULE PO (08:46)
[2024-06-30] MEDS: CHOLECALCIFEROL 1,000 UNITS TABLET 1000 UNITS PO (08:47)
[2024-07-01 15:46] VITALS: BP 131/73; PULSE 78; RESP 20; TEMP 36.6; O2SAT 100
== END 2024-06-30 11:28 | disposition home or self-care (01) | DRG 807 ==
LOC: ANHLDR 06-28 → ANHOB2 06-28 05:19
PROVIDERS: Admitting Provider Obstetrics & Gynecology Gynecology; PCP Advanced Practice Midwife; Visit Provider Obstetrics & Gynecology Gynecology
DX: O14.04 Mild to moderate pre-eclampsia, complicating childbirth (principal); Z37.0 Single live birth; Z3A.37 37 weeks gestation of pregnancy; O99.824 Streptococcus B carrier state complicating childbirth; O36.8330 Maternal care for abnormalities of the fetal heart rate or rhythm, third trimester, not applicable or unspecified; O72.1 Other immediate postpartum hemorrhage; O72.2 Delayed and secondary postpartum hemorrhage; O69.1XX0 Labor and delivery complicated by cord around neck, with compression, not applicable or unspecified
CPT/HCPCS: 36415; 80053; 84550; 85014; 85018; 85025; 86592; 86703; 86850; 86900; 86901; 88307; A9270; G0432; J0290; J0690; J2371; J2405; J2590; J2795; J7030; J7120